=== PATIENT | male | born 1990 | race Caucasian/White ===

== ENCOUNTER 2018-08-16 17:08 | Emergency (ER) | payer OTHER ==
[~2018-08-16] VITALS: Ht 187.9 cm; Wt 117.9 kg
[~2018-08-16 17:08] MED LIST: BACTRIM DS 8001 TA1 PO; CIPRO500 MG PO; KEFLEX500 MG PO; MEDROL DOSEPAK4 MG PO
[2018-08-16] MEDS ORDERED: CEPHALEXIN500 M1 PO (17:50)
== END 2018-08-16 17:54 | disposition home or self-care (01) ==
LOC: ED 17:08
DX: L03.115 Cellulitis of right lower limb (principal); W22.8XXA Striking against or struck by other objects, initial encounter; Y93.89 Activity, other specified; Y92.89 Other specified places as the place of occurrence of the external cause; Y99.8 Other external cause status